=== PATIENT | female | born 1990 | race Two or more races ===

== ENCOUNTER 2016-12-31 17:23 | Inpatient (IN) | payer MEDICAID ==
--- NOTE | 2016-12-31 17:59 | ED Physician Chart ---
Chief Complaint/HPI - Patient Information Allergies:: Allergies Allergy/AdvReac Type Severity Reaction Status Date / Time No Known Allergies Allergy Verified 12/31/16 17:56 Vitals:: Vital Signs - 8 hr 12/31/16 12/31/16 18:12 20:31 Temp 98.3 F 98.1 F HR 84 79 RR 16 17 BP 138/74 131/86 O2 Sat % 98 97 <José MiguelbakariSilas - Last Filed: 12/31/16 21:55> - Patient Information Date Seen:: 12/31/16 Time Seen:: 17:59 History of Present Illness:: CC: ABRUPT ONSET OF RLQ ABD PAIN ABOUT 3 PM. HPI: This 26 year old female presented with severe RLQ Abd pain about 1 hour prior to admission. The pain was severe (10/10) and radiated around the right side of the abdomen to the right sub-scapular region. The pain was made worse by movement. It was accompanied by nausea and 3 episodes of vomiting. She and no diarrhea, dysuria, or hematuria. No recent fever or chills. The patient did not think she was . Allergies:: Allergies Allergy/AdvReac Type Severity Reaction Status Date / Time No Known Allergies Allergy Verified 12/31/16 17:56 <Niraj Larios - Last Filed: 01/01/17 10:32> Review of Systems - Review of Systems General/Constitutional: No fever, No chills, No weakness, No edema, Loss of appetite Skin: No skin lesions, No rash Head: No headache Eyes: No loss of vision, No pain, No diplopia ENT: No earache, No nasal drainage, No sore throat Neck: No neck pain, No stiffness, No mass noted Cardio Vascular: No chest pain, No PND, No edema GI: Nausea, Vomiting (X 3), Pain, No constipation G/U: No dysuria, No frequency, No hematuria Music Journalist: No vaginal discharge, No abnormal vaginal bleed Psychiatric: No prior psych history Neurological: No syncope, No weakness, No headache, No seizure, No confusion, No vertigo <Niraj Larios - Last Filed: 01/01/17 10:32> Past Medical History - Past Medical History Past Medical History: No significant medical hx <Niraj Larios - Last Filed: 01/01/17 10:32> Family Medical History - Family Member Mother History Unknown: Yes <Niraj Larios - Last Filed: 01/01/17 10:32> Physical Exam - Physical Examination General/Constitutional: Awake, Well-developed, well-nourished, Alert, Ambulatory Other Gen/Cons comments:: Severe distress. Head: Atraumatic Eyes: Lids, conjuctiva normal, PERRL, EOMI Other Eyes comments:: sclera non-icteric Skin: Nl inspection, No rash, No skin lesions, No ecchymosis, Well hydrated ENMT: External ears, nose nl, Lips, teeth, gums nl, Oropharynx nl, Tonsils nl Neck: Nontender, Full ROM w/o pain, No JVD, No nuchal rigidity, No mass Respiratory: Nl effort/Exclusion, Clear to Auscultation, No Wheeze/Rhonchi/Rales Cardio Vascular: RRR, No murmur, gallop, rubs, NL S1 S2 Other Cardio Vascular comments:: Good pulses in all 4 extremities. Other GI comments:: The abdomen was flat and without distention. no surgical scars. Bowel sounds were decreased but present. There was marked tenderness in the right lower quadrant over McBurney's point. the patient had both guarding and rebound tenderness in this area. No palpable masses. : No CVA tenderness Extremities: No tenderness or effusion, Full ROM, normal strength in all extremities, No edema Neuro/Psych: Alert/oriented, Normal sensory exam, Normal motor strength, Judgement/insight normal, Mood normal Other Neuro/Psych comments:: The patient's gait was abnormal with her leaning forward and holding the right lower quadrant in both hands. Misc: Normal back, No paraspinal tenderness <Niraj Larios - Last Filed: 01/01/17 10:32> Labs/Radiology/EKG Results - Lab Results Results: Laboratory Tests 12/31/16 12/31/16 12/31/16 17:45 17:45 18:48 WBC 12.1 H RBC 4.60 Hgb 13.9 D Hct 41.4 D MCV 90.0 MCH 30.3 MCHC Differential 33.6 RDW 13.5 Plt Count 214 D MPV 9.2 Neutrophils % 84.8 H Lymphocytes % 10.0 L Monocytes % 4.7 Eosinophils % 0.4 Basophils % 0.1 Sodium Potassium Chloride Carbon Dioxide Anion Gap BUN Creatinine Est GFR ( Amer) Est GFR (Non-Af Amer) BUN/Creatinine Ratio Glucose Whole Bld Lactic Acid Calcium Amylase Lipase Urine Source RANDOM Urine Color YELLOW Urine Clarity CLOUDY H Urine pH 5.5 Ur Specific [place] Urine Protein 30 H Urine Glucose (UA) NEGATIVE Urine Ketones 15 H Urine Blood MODERATE H Urine Nitrate NEGATIVE Urine Bilirubin NEGATIVE Urine Urobilinogen 0.2 Ur Leukocyte Esterase TRACE H Urine RBC 5-10 H Urine WBC 6-10 H Ur Epithelial Cells MANY Urine Bacteria MANY Urine Test NEGATIVE 12/31/16 12/31/16 12/31/16 18:48 18:48 18:48 WBC RBC Hgb Hct MCV MCH MCHC Differential RDW Plt Count MPV Neutrophils % Lymphocytes % Monocytes % Eosinophils % Basophils % Sodium 136 Potassium 3.4 L Chloride 108 H Carbon Dioxide 27.0 Anion Gap 4.4 L BUN 9 Creatinine 0.5 L Est GFR ( Amer) > 60.0 Est GFR (Non-Af Amer) > 60.0 BUN/Creatinine Ratio 18.0 Glucose 105 Whole Bld Lactic Acid 0.91 Calcium 9.1 Amylase 66 Lipase 29 Urine Source Urine Color Urine Clarity Urine pH Ur Specific [place] Urine Protein Urine Glucose (UA) Urine Ketones Urine Blood Urine Nitrate Urine Bilirubin Urine Urobilinogen Ur Leukocyte Esterase Urine RBC Urine WBC Ur Epithelial Cells Urine Bacteria Urine Test - Radiology Results Results: CT abdomen and pelvis preliminary report Distended stomach Right hydronephrosis, hydroureter ? 2 mm stone distal right UP junction No free fluid Appendix not seen, no secondary signs of appendicitis Diverticulitis Allergies risks,? Left ovarian cyst Ultrasound abdomen, right lower quadrant, prelim report per radiology Consistent with appendicitis <Silas Ying - Last Filed: 12/31/16 21:55> - Lab Results Results: The test was negative. The basic metabolic panel showed mild hypokalemia and normal renal function. The CBC was pending. Ultrasound examination of the abdomen and pelvis was suggestive of acute appendicitis. CT scan of the abdomen was ordered and was pending at the time I transferred care of the patient to Dr. Torres. My presumptive diagnosis was acute appendicitis. Ectopic was ruled out by the negative test. Renal colic was also a possibility and should be answered by results of the CT scan. The patient's symptoms were addressed with IV normal saline, Zofran and IV morphine and I lauded. The patient had fairly good relief of symptoms with these medications. <Niraj Larios - Last Filed: 01/01/17 10:32> ED Septic Shock - . Is Septic Shock (SBP<90, OR Lactate>4 mmol\L) present?: No - <6hrs of presentation: Vital Signs: Vital Signs - 8 hr 12/31/16 12/31/16 18:12 20:31 Temp 98.3 F 98.1 F HR 84 79 RR 16 17 BP 138/74 131/86 O2 Sat % 98 97 <Silas Ying - Last Filed: 12/31/16 21:55> Reassessment (Disposition) - Reassessment Reassessment:: Acute right lower quadrant pain due to either ureteral lithiasis or appendicitis or both. There are conflicting imaging studies. CT of the abdomen pelvis was read with no secondary signs of appendicitis and appendix not seen. However, I clearly can see a distended appendix in the CT scan. The ultrasound report shows signs of appendicitis. There is also a questionable to smell meter right ureteral stone at the UV junction. There is some right-sided hydronephrosis and right hydroureter. He has leukocytosis. There is hematuria however no signs of UTI. At this point patient will need to be admitted for further workup and treatment to differentiate. Ortiz score = 7 - Right lower quadrant tenderness +2 - Rebound tenderness +1 - Nausea +1 - Leukocytosis greater than 10,000 +2 - Leukocyte left shift +1 Discussed with admitting physician Discussed with patient. - Diagnosis Diagnosis:: Acute right lower quadrant abdominal pain due to possible acute appendicitis versus acute right-sided ureterolithiasis - Aftercare/Follow up Instructions Aftercare/Follow-Up Instructions:: Counseled pt regarding lab results/diagnosis & need follow up, Refer to Discharge Instructions - Patient Disposition Discharge/Transfer:: Acute Care w/in this hosp Admitting Medical Physician:: Mason Licea Time:: 21:55 Condition at Disposition:: Improved <Silas Ying - Last Filed: 12/31/16 21:55> ED Discharge Plan <Silas Ying - Last Filed: 12/31/16 21:55> <Niraj Larios - Last Filed: 01/01/17 10:32> - Patient Disposition Admit/Discharge/Transfer: Acute Care w/in this hosp
[2016-12-31] MEDS ORDERED: Sodium Chloride 0.9% 2,000 ML IV ONE (18:09)
[2016-12-31] MEDS ORDERED: Morphine Sulfate 4 mg/mL 1mL Syr ONE (18:18)
[2016-12-31 18:25] LABS: URINE BILIRUBIN NEGATIVE (NEGATIVE); URINE COLOR YELLOW; URINE GLUCOSE (UA) NEGATIVE (NEGATIVE); URINE KETONE 15 mg/dL (NEGATIVE)
[2016-12-31 18:26] LABS: URINE BACTERIA MANY /hpf (NONE SEEN); URINE BLOOD MODERATE (NEGATIVE); URINE EPITHELIAL CELLS MANY /lpf (FEW); URINE PH 5.5; URINE PROTEIN 30 mg/dL (NEGATIVE); URINE UROBILINOGEN 0.2 E.U./dL (0.2 - 1.0)
[2016-12-31 19:19] LABS: AMYLASE SERUM 66 U/L (29-103); ANION GAP 4.4 (7.0-16.0); BUN - UREA NITROGEN 9 mg/dL (7-25); CALCIUM SERUM 9.1 mg/dL (8.6-10.3); CHLORIDE 108 mEq/L (98-107); CREATININE - SERUM 0.5 mg/dL (0.6-1.2); GLUCOSE 105 mg/dL (70-105); LIPASE 29 U/L (11-82); POTASSIUM SERUM 3.4 mEq/L (3.5-5.1); SODIUM SERUM 136 mEq/L (136-145)
[2016-12-31] MEDS ORDERED: cefTRIAXone 2 GM in Sodium Chloride 0.9% 100 ML IV ONE (19:28)
[2016-12-31] MEDS ORDERED: HYDROmorphone 1 mg/mL 1mL Syr IVP STA (19:40)
[2016-12-31] MEDS ORDERED: HYDROmorphone 1 mg/mL 1mL Syr ONE (19:41)
[2016-12-31 20:11] LABS: % BASOPHILS 0.1 % (0.0-2.0); % EOSINOPHILS 0.4 % (0.0-5.0); % MONOCYTES 4.7 % (2.0-10.0); % NEUTROPHILS 84.8 % (40.0-80.0); MEAN CORPUSCULAR HEMOGLOBIN 30.3 pg (27.0-31.0); MEAN CORPUSCULAR HGB CONC 33.6 pg (28.0-36.0); MEAN PLATELET VOLUME 9.2 fl; NEUTROPHILE ABSOLUTE 10.3 Th/cmm (1.8-8.0); RED CELL DISTRIBUTION WIDTH 13.5 % (11.5-20.0)
[2016-12-31 20:17] LABS: HEMATOCRIT 41.4 % (35.0-45.0); HEMOGLOBIN 13.9 gm/dL (11.7-15.5); PLATELET COUNT 214 Th/cmm (150-400); WHITE BLOOD COUNT 12.1 Th/cmm (4.8-10.8)
[2016-12-31] MEDS ORDERED: D5-0.9%NS 1,000 ML IV SCH (23:45)
[2016-12-31] MEDS ORDERED: Maalox 30 mL Cup PO PRN (23:51)
--- NOTE | 2017-01-01 05:06 | Admit Criteria Form ---
Admit Criteria Forms - Admit Criteria Diagnosis: ABDOMINAL PAIN Clinical Indications for Admission to Inpatient Care (Place 'X' for any and all applicable criteria): Admission is indicated for ANY ONE of the following(1)(2)(3)(4)(5): [X ]I. Inpatient admission required rather than observation care (Also use Abdominal Pain: Observation Care, as appropriate) because of ANY ONE of the following: [ ]a) Severe pain requiring acute inpatient management [X ]b) Identification of etiology/finding that requires inpatient care (eg, aortic dissection, free air) [ ]c) Absent bowel sounds with complete ileus(6) [ ]d) Suspected toxic megacolon [ ]e) Severe electrolyte abnormalities requiring inpatient care [ ]f) High fever or infection requiring inpatient admission as indicated by ANY ONE of following(7)(8): [ ] i) Appropriate outpatient or observational care antimicrobial treatment unavailable, not effective, or not feasible [ ] ii) Documented bacteremia [ ] iii) Temperature > 104.9 degrees F (oral) [ ] iv) T >103.1 F (oral) or < 96.8 F(rectal) that does not respond to all emergency treatment measures [ ]g) Signs of intestinal obstruction [B] [ ]h) Hemodynamic instability [ ]i) IV fluid to replace significant ongoing losses (greater than 3 L/m2 per day) (12)(13) [ ]j) Percutaneous or open drainage (eg, abscess, biliary tract ) procedures [ ]k) Parenteral nutrition regimen that must be implemented on inpatient basis [ ]l) Other condition,treatment or monitoring requiring inpatient admission. [ ]II. Peritoneal signs present [ ]III. Surgery needed that cannot be performed on an ambulatory basis. [ ]IV. Evaluation requires patient to not eat or drink for extended period ( eg, more than 24 hours). [ ]V. Contraindications and/or Inappropriate clinical situations for Observational Care in patients with abdominal pain, when ANY ONE of the following is required: [ ]a) Thorough evaluation is required to prevent catastrophic events due to delays in diagnosing (e.g.Mesenteric ischemia) 1,3 [ ]b) Patient with severe pathology or with chronic symptoms unlikely to improve in the ED stay (3) [ ]. General contraindications and/or Inappropriate clinical situations for Observational Care in patients with abdominal pain, when ANY ONE of the following is required: [ ]a) Prediction of prolongation of LOS based on ANY ONE of the following may be considered as a contraindication for observational care 2, 3, 4, 5, 6, 7, 8, 9, 10, 11 [ ]i) Age > 65 yrs. [ ]ii) Patient arriving by ambulance [ ]iii) Patient with high acuity [ ]iv) Patient requiring vital sign monitoring [ ]v) Patient on IV medication [ ]b) Systolic blood pressures 180mmHg 3,12 [ ]c) Patient with altered mental status including delirium and other alteration of consciousness, (3) [ ]d) Patient whose discharge disposition will be to a custodial home or rehabilitation home should not be managed in Emergency Department Observation Unit. CMS rule requires 3 days hospital stay before such placement.3,13 [ ]e) Patient with failure to thrive due to broad array of etiologies 3,16,17 [ ]f) Inability to ambulate 3,14 Extended stay beyond goal length of stay may be needed for(2)(3): [ ]a) Persistent abdominal pain with suspected intra-abdominal process [ ]b) Diagnosed condition requiring continued stay (e.g., pancreatitis, complicated diverticulitis) [ ]c) Surgery (e.g., colectomy) The original [facility] content created by [employer] has been revised. The portions of the content which have been revised are identified through the use of italic text or in bold, and [facility] has neither reviewed nor approved the modified material.All other unmodified content is copyright [facility]. Please see references footnoted in the original [facility] edition 2016 Admit Criteria Met?: Yes
[2017-01-01 05:32] LABS: % EOSINOPHILS 0.5 % (0.0-5.0); HEMOGLOBIN 12.4 gm/dL (11.7-15.5)
[2017-01-01 05:36] LABS: % BASOPHILS 0.3 % (0.0-2.0); % LYMPHOCYTES 26.8 % (20.0-50.0); % MONOCYTES 8.3 % (2.0-10.0); % NEUTROPHILS 64.1 % (40.0-80.0); MEAN CELL VOLUME 89.5 fl (81-100); MEAN CORPUSCULAR HGB CONC 34.6 pg (28.0-36.0); MEAN PLATELET VOLUME 8.8 fl; NEUTROPHILE ABSOLUTE 5.4 Th/cmm (1.8-8.0); PLATELET COUNT 209 Th/cmm (150-400); RED CELL DISTRIBUTION WIDTH 13.9 % (11.5-20.0)
[2017-01-01 05:43] LABS: HEMATOCRIT 35.8 % (35.0-45.0); WHITE BLOOD COUNT 8.3 Th/cmm (4.8-10.8)
[2017-01-01 05:58] LABS: INR 1.07 (0.5-1.4); PROTHROMBIN TIME (TEST) 11.1 SECONDS (9.5-11.5)
[2017-01-01 06:05] LABS: ANION GAP 2.2 (7.0-16.0); BUN - UREA NITROGEN 8 mg/dL (7-25); CALCIUM SERUM 8.6 mg/dL (8.6-10.3); CARBON DIOXIDE 25.3 mEq/L (21.0-31.0); CHLORIDE 112 mEq/L (98-107); CREATININE - SERUM 0.5 mg/dL (0.6-1.2); GLUCOSE 148 mg/dL (70-105); POTASSIUM SERUM 3.5 mEq/L (3.5-5.1); SODIUM SERUM 136 mEq/L (136-145)
[2017-01-01] MEDS: Morphine Sulfate 2 mg/mL 1mL Syr IVP PRN ×2 (07:25→23:35)
--- NOTE | 2017-01-01 09:15 | Diagnostic Imaging Report ---
INDICATION: Pain Technique: Serial axial images were performed through the abdomen and pelvis and then reformatted in the coronal plane. CTDI is 8mGy. [id number] FINDINGS: Lung bases clear. Liver and spleen are normal in size without focal mass. Hydronephrosis of the right kidney and dilatation of the right ureter down to the ureterovesical junction where a 3 mm stones present left kidney unremarkable. No masses or enlargement of the adrenal glands or pancreas. No biliary dilatation. Gallbladder without stones No distention of small bowel loops. The appendix is not well seen. Within the pelvis bladder is smooth walled without stones. No abnormal masses or fluid collections. Bone windows show no lytic or blastic lesions of bone. IMPRESSION: Hydronephrosis of the right kidney with right hydroureter down to the ureterovesical junction where there is a 3 mm stone present.
--- NOTE | 2017-01-01 09:18 | Diagnostic Imaging Report ---
History: Right lower quadrant pain Findings: 2-D real-time ultrasound was performed with sagittal and axial images submitted for evaluation. There is mild right hydronephrosis. There is thickening of the ross of the appendix with the outside diameter of 2.6 cm. Impression: Findings suggest an inflamed appendix. Please correlate clinically
--- NOTE | 2017-01-01 10:59 | Consultation ---
DATE OF CONSULTATION: 01/01/2017 REFERRING PHYSICIAN: Dr. Licea. REASON FOR CONSULTATION: Abdominal pain. Thank you for referring this patient to me. HISTORY OF PRESENT ILLNESS: This is a 26-year-old female who comes in because of abdominal pain x 24 hours. Pain is in the right lower quadrant with nausea and vomiting. Denies diarrhea. PAST MEDICAL HISTORY: She had two C-sections, but otherwise has been healthy. LABORATORY STUDIES: WBC was 12,100 on admission, rest of the studies were essentially normal. The patient underwent CT scan of the abdomen and pelvis which showed a 3 mm stone in the right ureter with some hydronephrosis. On ultrasound; however, she has an enlarged appendix. PHYSICAL EXAMINATION: ABDOMEN: Tenderness in right lower quadrant with rebound. IMPRESSION: 1. Acute appendicitis. 2. Right ureteral stone. PLAN: Informed consent was discussed with the patient via inverter and clipper Debbi__ __ who is a nurse about the risks and complications of the procedure and in view of the two C-sections and open appendectomy may have to be resorted to _if adhesions___ _ get in the way. The patient will need to be referred to urologist for the kidney stone. JOB# [id number] THERESA
--- NOTE | 2017-01-01 11:02 | History & Physical ---
ADMIT DATE: 01/01/2017 CHIEF COMPLAINT: Right lower quadrant pain. HISTORY OF PRESENT ILLNESS: This is a 26-year-old female who presents to [facility] ER for right lower quadrant abdominal pain. Ultrasound of the abdomen showed possible appendicitis. The patient denies any fevers or chills. Denies any nausea or vomiting. While in the ER, her initial lab work revealed a white count of 12.1, hemoglobin of 13.9, hematocrit 41.4, platelets 214. Chem-7, sodium 136, potassium 3.4, chloride 108, bicarbonate 27, BUN 9, creatinine 0.5, glucose 105. CT of her abdomen did reveal right hydronephrosis, hydroureter with a 2 mm distal kidney stone. The patient was subsequently admitted for further evaluation and treatment. PAST MEDICAL HISTORY: None. FAMILY HISTORY: None. ALLERGIES: NO KNOWN DRUG ALLERGIES. MEDICATIONS: None. REVIEW OF SYSTEMS: Essentially negative with the exception of the above complaints. PHYSICAL EXAMINATION: VITAL SIGNS: Temperature 98.1, pulse 79, respirations 17, blood pressure 131/86. GENERAL: This is a 26-year-old female, well developed, well nourished, appears stated age. HEENT: Normocephalic, atraumatic. Pupils equal, round, reactive to light and accommodation. Extraocular muscles intact. Ears: TMs intact. NECK: Supple. Good range of motion. No thyromegaly, no lymphadenopathy. CARDIOVASCULAR: Regular rate and rhythm. No murmurs, rubs or clicks. LUNGS: Clear to auscultation. No rales, rhonchi or wheezing. ABDOMEN: Right lower quadrant abdominal pain. Bowel sounds are active in all 4 quadrants. EXTREMITIES: No clubbing, cyanosis or edema. Pedal pulses intact. ASSESSMENT: 1. Right lower quadrant abdominal pain, rule out appendicitis. 2. Hypokalemia. 3. Left nephrolithiasis. 4. Hydronephrosis of the right. 5. Hydroureter to the right. PLAN: We will keep patient n.p.o. We will start IV fluids. Surgical consult with Dr. Dorman. JOB# [id number]
[2017-01-01] MEDS ORDERED: Midazolam 1mg/ml 2 ml vial IV ONE (11:09)
[2017-01-01] MEDS ORDERED: Meperidine 50 mg/mL 1mL Syr ONE ×2 (11:09→12:34)
[2017-01-01] MEDS ORDERED: Neostigmine 10mg/10mL Vial ONE (11:43)
--- NOTE | 2017-01-01 11:49 | General Progress Note ---
Subjective - Review of Systems Service Date: 01/01/17 Events since last encounter: lap appendectomy performed recheck labs in AM may have clear liquids Objective - Results Result Diagrams: 01/01/17 05:19 01/01/17 05:19 Recent Labs: Laboratory Last Values WBC 8.3 Th/cmm (4.8-10.8) D 01/01/17 05:19 RBC 4.00 Mil/cmm (3.80-5.10) 01/01/17 05:19 Hgb 12.4 gm/dL (11.7-15.5) 01/01/17 05:19 Hct 35.8 % (35.0-45.0) D 01/01/17 05:19 MCV 89.5 fl (81-100) 01/01/17 05:19 MCH 31.0 pg (27.0-31.0) 01/01/17 05:19 MCHC Differential 34.6 pg (28.0-36.0) 01/01/17 05:19 RDW 13.9 % (11.5-20.0) 01/01/17 05:19 Plt Count 209 Th/cmm (150-400) 01/01/17 05:19 MPV 8.8 fl 01/01/17 05:19 Neutrophils % 64.1 % (40.0-80.0) 01/01/17 05:19 Lymphocytes % 26.8 % (20.0-50.0) 01/01/17 05:19 Monocytes % 8.3 % (2.0-10.0) 01/01/17 05:19 Eosinophils % 0.5 % (0.0-5.0) 01/01/17 05:19 Basophils % 0.3 % (0.0-2.0) 01/01/17 05:19 PT 11.1 SECONDS (9.5-11.5) 01/01/17 05:19 INR 1.07 (0.5-1.4) 01/01/17 05:19 PTT (Actin FS) 30.1 SECONDS (26.0-38.0) 01/01/17 05:19 Sodium 136 mEq/L (136-145) 01/01/17 05:19 Potassium 3.5 mEq/L (3.5-5.1) 01/01/17 05:19 Chloride 112 mEq/L (98-107) H 01/01/17 05:19 Carbon Dioxide 25.3 mEq/L (21.0-31.0) 01/01/17 05:19 Anion Gap 2.2 (7.0-16.0) L 01/01/17 05:19 BUN 8 mg/dL (7-25) 01/01/17 05:19 Creatinine 0.5 mg/dL (0.6-1.2) L 01/01/17 05:19 Est GFR ( Amer) > 60.0 ml/min (>90) 01/01/17 05:19 Est GFR (Non-Af Amer) > 60.0 ml/min 01/01/17 05:19 BUN/Creatinine Ratio 16.0 01/01/17 05:19 Glucose 148 mg/dL (70-105) H 01/01/17 05:19 Whole Bld Lactic Acid 0.91 mmol/L (0.60-1.99) 12/31/16 18:48 Calcium 8.6 mg/dL (8.6-10.3) 01/01/17 05:19 Amylase 66 U/L (29-103) 12/31/16 18:48 Lipase 29 U/L (11-82) 12/31/16 18:48 Urine Source RANDOM 12/31/16 17:45 Urine Color YELLOW 12/31/16 17:45 Urine Clarity CLOUDY (CLEAR) H 12/31/16 17:45 Urine pH 5.5 12/31/16 17:45 Ur Specific [place] (1.005-1.030) 12/31/16 17:45 Urine Protein 30 mg/dL (NEGATIVE) H 12/31/16 17:45 Urine Glucose (UA) NEGATIVE mg/dL (NEGATIVE) 12/31/16 17:45 Urine Ketones 15 mg/dL (NEGATIVE) H 12/31/16 17:45 Urine Blood MODERATE (NEGATIVE) H 12/31/16 17:45 Urine Nitrate NEGATIVE (NEGATIVE) 12/31/16 17:45 Urine Bilirubin NEGATIVE (NEGATIVE) 12/31/16 17:45 Urine Urobilinogen 0.2 E.U./dL (0.2 - 1.0) 12/31/16 17:45 Ur Leukocyte Esterase TRACE (NEGATIVE) H 12/31/16 17:45 Urine RBC 5-10 /hpf (0-5) H 12/31/16 17:45 Urine WBC 6-10 /hpf (0-5) H 12/31/16 17:45 Ur Epithelial Cells MANY /lpf (FEW) 12/31/16 17:45 Urine Bacteria MANY /hpf (NONE SEEN) 12/31/16 17:45 Urine Test NEGATIVE 01/01/17 10:00 - Physical Exam Vitals and I&O: Vital Signs Temp 98.6 F 01/01/17 08:00 Pulse 69 01/01/17 08:00 Resp 18 01/01/17 08:00 BP 109/71 01/01/17 08:00 Pulse Ox 99 01/01/17 08:00 Intake & Output 12/31/16 01/01/17 01/01/17 18:59 06:59 18:59 Weight (lbs) 73.482 kg Other: # Voids 2 Active Medications: Current Medications Acetaminophen (Tylenol) 650 mg PO Q4HR PRN PRN Reason: Mild Pain or Fever >101 Stop: 03/01/17 23:50 Al Hydrox/Mg Hydrox/Simethicone (Maalox) 30 ml PO Q6HR PRN PRN Reason: Constipation Stop: 03/01/17 23:50 Cefepime HCl 1 gm/ Dextrose 50 mls @ 100 mls/hr IV Q12H [facility] Stop: 03/01/17 23:44 Last Admin: 01/01/17 00:52 Dose: 100 mls/hr Potassium Chloride/Dextrose/Sod Cl (D5-0.9ns W/Kcl 20meq) 1,000 mls @ 75 mls/ hr IV .[id number] [facility] Stop: 03/02/17 08:44 Meclizine HCl (Antivert) 25 mg PO DAILY PRN PRN Reason: Nausea / Vomiting Stop: 03/01/17 23:50 Morphine Sulfate (Morphine) 2 mg IVP Q4HR PRN PRN Reason: Pain (Moderate) Stop: 03/01/17 23:50 Last Admin: 01/01/17 07:25 Dose: 2 mg Ondansetron HCl (Zofran) 4 mg IV Q8H PRN PRN Reason: Nausea / Vomiting Stop: 03/01/17 23:50 Zolpidem Tartrate (Ambien) 10 mg PO HS PRN PRN Reason: Insomnia Stop: 03/01/17 23:50 - Procedures Procedures: Procedures Procedure Code Date DELIVERY ONLY 64197 05/17/13 LOW CERVICAL 74.1 05/17/13
[2017-01-01] MEDS ORDERED: Lidocaine 2% Vial 20 mL Vial ONE (11:50)
[2017-01-01] MEDS ORDERED: Meperidine 25 mg/mL 1mL Syr IVP PRN (12:47)
[2017-01-01] MEDS ORDERED: Lactated Ringer 1,000 ML IV SCH (13:00)
--- NOTE | 2017-01-01 13:02 | Operative Report ---
DATE OF SURGERY: 01/01/2017 PREOPERATIVE DIAGNOSES: 1. Acute appendicitis. 2. Right ureteral stone. 3. Status post 2 sections. POSTOPERATIVE DIAGNOSES: 1. Acute appendicitis. 2. Right ureteral stone. 3. Status post 2 sections. OPERATION DONE: Laparoscopic appendectomy. SURGEON: Dandy Vasquez M.D. ANESTHESIA: General. ANESTHESIOLOGIST: Ramakrishna August M.D. ESTIMATED BLOOD LOSS: 5 mL. OPERATIVE FINDINGS: Retrocecal appendix with adhesions. DESCRIPTION OF PROCEDURE: The patient was given general anesthesia. The abdomen was prepped with ChloraPrep and draped in appropriate manner. An incision was made in the infraumbilical region along the skin line. A Veress needle was inserted. Insufflation of CO2 was carried successfully. A 10 mm trocar was placed through this incision and scope was introduced. There was good visualization of the intraabdominal cavity. A 5 mm trocar was placed in the lower abdomen at the midline and another 10 mm trocar was placed in the left lower abdomen. The operating table was lowered at the head and turned to the left side. The appendix was identified and was found to be retrocecal. Nipomo was used to resect the appendix free from the adhesions. When the base of the appendix was finally identified, this was transected with Endo RITO. Checked for hemostasis, found to be satisfactory. The appendix was removed in Endobag. All CO2 was expressed out of the abdominal cavity following removal of the trocars. Trocar sites infiltrated with 0.5% Marcaine. The incision was closed with kaylee. The patient tolerated the procedure well. JOB# [id number]
[2017-01-01] MEDS: D5-0.9NS w/KCL 20mEq 1,000 ML IV SCH (15:08)
[2017-01-02] MEDS: D5-0.9NS w/KCL 20mEq 1,000 ML IV SCH (05:24)
[2017-01-02 05:49] LABS: % BASOPHILS 0.1 % (0.0-2.0); % LYMPHOCYTES 22.5 % (20.0-50.0); % MONOCYTES 7.8 % (2.0-10.0); % NEUTROPHILS 68.6 % (40.0-80.0); HEMATOCRIT 35.3 % (35.0-45.0); HEMOGLOBIN 12.1 gm/dL (11.7-15.5); MEAN CELL VOLUME 89.3 fl (81-100); MEAN CORPUSCULAR HEMOGLOBIN 30.6 pg (27.0-31.0); MEAN CORPUSCULAR HGB CONC 34.2 pg (28.0-36.0); NEUTROPHILE ABSOLUTE 6.5 Th/cmm (1.8-8.0); PLATELET COUNT 199 Th/cmm (150-400); RED BLOOD COUNT 3.95 Mil/cmm (3.80-5.10); RED CELL DISTRIBUTION WIDTH 13.6 % (11.5-20.0); WHITE BLOOD COUNT 9.4 Th/cmm (4.8-10.8)
[2017-01-02 06:23] LABS: ALB/GLOB RATIO 1.3 (1.0-1.8); ALKALINE PHOSPHATASE 48 U/L (34-104); ANION GAP 2.8 (7.0-16.0); BILIRUBIN,TOTAL 1.1 mg/dL (0.3-1.0); BUN - UREA NITROGEN 5 mg/dL (7-25); BUN/CREATININE RATIO 12.5; CALCIUM SERUM 8.5 mg/dL (8.6-10.3); CARBON DIOXIDE 26.8 mEq/L (21.0-31.0); CHLORIDE 110 mEq/L (98-107); CREATININE - SERUM 0.4 mg/dL (0.6-1.2); GLUCOSE 106 mg/dL (70-105); POTASSIUM SERUM 3.6 mEq/L (3.5-5.1); SGOT 13 U/L (13-39); SGPT/ALT 13 U/L (7-52); SODIUM SERUM 136 mEq/L (136-145)
[2017-01-02] MEDS ORDERED: D5-0.9%NS 1,000 ML IV SCH ×2 (07:25→17:28)
--- NOTE | 2017-01-02 08:10 | General Progress Note ---
Subjective - Review of Systems Service Date: 01/02/17 Events since last encounter: labs OK moderate pain may DC if tolerating increased diet today to my office 1 week may shower Objective - Results Result Diagrams: 01/02/17 05:20 01/02/17 05:20 Recent Labs: Laboratory Last Values WBC 9.4 Th/cmm (4.8-10.8) 01/02/17 05:20 RBC 3.95 Mil/cmm (3.80-5.10) 01/02/17 05:20 Hgb 12.1 gm/dL (11.7-15.5) 01/02/17 05:20 Hct 35.3 % (35.0-45.0) 01/02/17 05:20 MCV 89.3 fl (81-100) 01/02/17 05:20 MCH 30.6 pg (27.0-31.0) 01/02/17 05:20 MCHC Differential 34.2 pg (28.0-36.0) 01/02/17 05:20 RDW 13.6 % (11.5-20.0) 01/02/17 05:20 Plt Count 199 Th/cmm (150-400) 01/02/17 05:20 MPV 9.0 fl 01/02/17 05:20 Neutrophils % 68.6 % (40.0-80.0) 01/02/17 05:20 Lymphocytes % 22.5 % (20.0-50.0) 01/02/17 05:20 Monocytes % 7.8 % (2.0-10.0) 01/02/17 05:20 Eosinophils % 1.0 % (0.0-5.0) 01/02/17 05:20 Basophils % 0.1 % (0.0-2.0) 01/02/17 05:20 PT 11.1 SECONDS (9.5-11.5) 01/01/17 05:19 INR 1.07 (0.5-1.4) 01/01/17 05:19 PTT (Actin FS) 30.1 SECONDS (26.0-38.0) 01/01/17 05:19 Sodium 136 mEq/L (136-145) 01/02/17 05:20 Potassium 3.6 mEq/L (3.5-5.1) 01/02/17 05:20 Chloride 110 mEq/L (98-107) H 01/02/17 05:20 Carbon Dioxide 26.8 mEq/L (21.0-31.0) 01/02/17 05:20 Anion Gap 2.8 (7.0-16.0) L 01/02/17 05:20 BUN 5 mg/dL (7-25) L 01/02/17 05:20 Creatinine 0.4 mg/dL (0.6-1.2) L 01/02/17 05:20 Est GFR ( Amer) > 60.0 ml/min (>90) 01/02/17 05:20 Est GFR (Non-Af Amer) > 60.0 ml/min 01/02/17 05:20 BUN/Creatinine Ratio 12.5 01/02/17 05:20 Glucose 106 mg/dL (70-105) H 01/02/17 05:20 Whole Bld Lactic Acid 0.91 mmol/L (0.60-1.99) 12/31/16 18:48 Calcium 8.5 mg/dL (8.6-10.3) L 01/02/17 05:20 Total Bilirubin 1.1 mg/dL (0.3-1.0) H 01/02/17 05:20 AST 13 U/L (13-39) 01/02/17 05:20 ALT 13 U/L (7-52) 01/02/17 05:20 Alkaline Phosphatase 48 U/L (34-104) 01/02/17 05:20 Total Protein 6.2 gm/dL (6.0-8.3) 01/02/17 05:20 Albumin 3.5 gm/dL (3.7-5.3) L 01/02/17 05:20 Globulin 2.7 gm/dL 01/02/17 05:20 Albumin/Globulin Ratio 1.3 (1.0-1.8) 01/02/17 05:20 Amylase 66 U/L (29-103) 12/31/16 18:48 Lipase 29 U/L (11-82) 12/31/16 18:48 Urine Source RANDOM 12/31/16 17:45 Urine Color YELLOW 12/31/16 17:45 Urine Clarity CLOUDY (CLEAR) H 12/31/16 17:45 Urine pH 5.5 12/31/16 17:45 Ur Specific [place] (1.005-1.030) 12/31/16 17:45 Urine Protein 30 mg/dL (NEGATIVE) H 12/31/16 17:45 Urine Glucose (UA) NEGATIVE mg/dL (NEGATIVE) 12/31/16 17:45 Urine Ketones 15 mg/dL (NEGATIVE) H 12/31/16 17:45 Urine Blood MODERATE (NEGATIVE) H 12/31/16 17:45 Urine Nitrate NEGATIVE (NEGATIVE) 12/31/16 17:45 Urine Bilirubin NEGATIVE (NEGATIVE) 12/31/16 17:45 Urine Urobilinogen 0.2 E.U./dL (0.2 - 1.0) 12/31/16 17:45 Ur Leukocyte Esterase TRACE (NEGATIVE) H 12/31/16 17:45 Urine RBC 5-10 /hpf (0-5) H 12/31/16 17:45 Urine WBC 6-10 /hpf (0-5) H 12/31/16 17:45 Ur Epithelial Cells MANY /lpf (FEW) 12/31/16 17:45 Urine Bacteria MANY /hpf (NONE SEEN) 12/31/16 17:45 Urine Test NEGATIVE 01/01/17 10:00 - Physical Exam Vitals and I&O: Vital Signs Temp 98.7 F 01/02/17 03:58 Pulse 84 01/02/17 03:58 Resp 18 01/02/17 03:58 BP 119/67 01/02/17 03:58 Pulse Ox 98 01/02/17 03:58 Intake & Output 01/01/17 01/02/17 01/02/17 18:59 06:59 18:59 Intake Total 350 1200 Balance 350 1200 Intake: Intake, IV Amount 50 1000 Cefepime 1 gm In Dextrose 50 5% 50 ml @ 100 mls/hr IV Q12H [facility]AN[facility] Rx#:[id number] D5-0.9NS w/KCL 20mEq 1, 1000 000 ml @ 75 mls/hr IV . [id number] BLANCA Rx#:[id number] Oral 300 200 Other: # Voids 4 3 Active Medications: Current Medications Acetaminophen (Tylenol) 650 mg PO Q4HR PRN PRN Reason: Mild Pain or Fever >101 Stop: 03/01/17 23:50 Al Hydrox/Mg Hydrox/Simethicone (Maalox) 30 ml PO Q6HR PRN PRN Reason: Constipation Stop: 03/01/17 23:50 Cefepime HCl 1 gm/ Dextrose 50 mls @ 100 mls/hr IV Q12H [facility]AN[facility] Stop: 03/01/17 23:44 Last Admin: 01/01/17 23:29 Dose: 100 mls/hr Lactated Ringer's (Lactated Ringer) 1,000 mls @ 0 mls/hr IV .Q0M [facility]ANCA PRN Reason: TKO Stop: 01/02/17 12:59 Dextrose/Sodium Chloride (D5-0.9%Ns) 1,000 mls @ 50 mls/hr IV .Q20H [facility]ANCA Stop: 03/03/17 07:24 Meclizine HCl (Antivert) 25 mg PO DAILY PRN PRN Reason: Nausea / Vomiting Stop: 03/01/17 23:50 Meperidine HCl (Demerol) 12.5 mg IVP UD PRN PRN Reason: POST-OP PAIN Stop: 01/02/17 12:46 Morphine Sulfate (Morphine) 2 mg IVP Q4HR PRN PRN Reason: Pain (Moderate) Stop: 03/01/17 23:50 Last Admin: 01/01/17 23:35 Dose: 2 mg Ondansetron HCl (Zofran) 4 mg IV Q8H PRN PRN Reason: Nausea / Vomiting Stop: 03/01/17 23:50 Zolpidem Tartrate (Ambien) 10 mg PO HS PRN PRN Reason: Insomnia Stop: 03/01/17 23:50 - Procedures Procedures: Procedures Procedure Code Date DELIVERY ONLY 74694 05/17/13 LOW CERVICAL 74.1 05/17/13
[2017-01-02] MEDS: Morphine Sulfate 2 mg/mL 1mL Syr IVP PRN (08:14)
--- NOTE | 2017-01-03 14:54 | Pathology Report ---
[id number] Collection Date: 01/01/2017 Surgeon: Dr. Justine Dorman Specimen Description: Appendix Gross Description: Received in formalin is a 3.5 cm in length x 0.7 cm in diameter appendix with a smooth, bustillos-fermin outer surface. Sectioning shows an intact appendix wall and lumen with no evidence for perforation. Totally submitted in two cassettes labeled A1 and A2. Microscopic Description: The histologic sections show appendix with an intact muscular wall and mucosa. There are patchy areas of chronic inflammation present consisting of scattered collections of lymphocytes that are seen mostly on the outer peritoneal surface of the appendix. There is no evidence for acute inflammation. Diagnosis: Nonspecific chronic inflammation (appendix). Comment: The inflammatory changes present are relatively nonspecific, however this may represent a resolving phase of appendicitis. These findings are discussed with Dr. Justine Dorman on 01/03/17. [facility]# [id number] MTDD
--- NOTE | 2017-01-11 19:42 | Discharge Summary ---
DATE OF DISCHARGE: 01/03/2017 PRELIMINARY DIAGNOSES: 1. Right lower quadrant abdominal pain, rule out appendicitis. 2. Hypokalemia. 3. Left nephrolithiasis. 4. Hydronephrosis of the right kidney. 5. Hydroureter to the right. DISCHARGE DIAGNOSES: 1. Right lower quadrant abdominal pain, appendicitis ruled in. 2. Status post appendectomy. 3. Hypokalemia, now resolved. BRIEF HISTORY OF PRESENT ILLNESS: This is a 26-year-old female who presents to [facility] ER for right lower quadrant abdominal pain. Ultrasound of the abdomen showed possible appendicitis. The patient denied any fever or chills, no nausea or vomiting. While in the ER, her initial lab work revealed a white count of 12,000, hemoglobin was 13.9, hematocrit 41.4, and platelets 214,000. Chem-7: Sodium was 136, potassium 3.4, chloride 108, bicarbonate 27, BUN 9, creatinine 0.5, and glucose 105. CT of her abdomen did reveal right hydronephrosis and hydroureter with a 2 mm distal kidney noted. The patient was subsequently admitted for further evaluation and treatment. HOSPITAL COURSE: The patient was seen and evaluated by Dr. Dorman for possible appendicitis. The patient was seen by Dr. Dorman and Dr. Dorman did confirm that she did have an acute appendicitis and was taking to surgery. Please see dictated OP note by Dr. Dorman. The patient did improve during her hospital stay and was subsequently discharged in stable condition, was informed to follow up with her primary care physician. [facility]# [id number]
== END 2017-01-03 17:30 | disposition home or self-care (01) | DRG 225 ==
LOC: ER 17:23 → MSI 23:50
PROVIDERS: ADMIT Family Medicine; ATTEND Family Medicine
PROC: 0DTJ4ZZ Resection of Appendix, Percutaneous Endoscopic Approach (ICD-10-PCS; principal; 2017-01-01)
DX: K35.80 Unspecified acute appendicitis (principal); N13.2 Hydronephrosis with renal and ureteral calculous obstruction; E87.6 Hypokalemia
CPT/HCPCS: 36415-UA; 76705-TC; 80048-TC; 80053-TC; 81001-TC; 81025-TC; 82150-TC; 83605; 83690-TC; 85025-TC; 85610-TC; 88304-TC; 96372; 96375; J0692; J0696; J1170; J2250; J2270; J2405; J2704; J2710; J7030; J7042; V2790; X6024; X6258; X6494; Z7610